=== PATIENT | female | born 1940 | race Caucasian/White ===

== ENCOUNTER 2021-06-03 11:08 | Emergency (ER) | payer MEDICARE, OTHER ==
[2021-06-03] MEDS ORDERED: Morphine 4 MG/ML VIAL ONE (11:50)
[2021-06-03] MEDS ORDERED: Ondansetron ODT 4 MG TAB ONE (11:50)
[2021-06-03] MEDS ORDERED: Ketorolac Tromethamine 30 MG/ML VIAL ONE (12:23)
[2021-06-03] MEDS ORDERED: HYDROcodone/Acetaminophen 5/325 mg Tablet ONE (12:23)
[2021-06-03] MEDS ORDERED: Boostrix 0.5 ML (Tdap) VIAL ONE (12:50)
== END 2021-06-03 13:19 | disposition home or self-care (01) ==
LOC: BURERS 11:08
DX: S52.502A Unspecified fracture of the lower end of left radius, initial encounter for closed fracture (principal); S00.31XA Abrasion of nose, initial encounter; M19.90 Unspecified osteoarthritis, unspecified site; D64.9 Anemia, unspecified; I10 Essential (primary) hypertension; Z79.899 Other long term (current) drug therapy; W01.0XXA Fall on same level from slipping, tripping and stumbling without subsequent striking against object, initial encounter
CPT/HCPCS: 29125; 90471; 90715; 96372; J1885; J2270; Q0162